=== PATIENT | male | born 1990 | race Caucasian/White ===

== ENCOUNTER 2019-09-28 01:52 | Emergency (ER) | payer MEDICAID ==
[~2019-09-28] VITALS: Ht 175.3 cm; Wt 72.6 kg
[2019-09-28 02:55] VITALS: BP_SYST 119
[2019-09-28] MEDS ORDERED: ACETAMINOPHEN 500 MG TABLET PO ONE (03:15)
--- NOTE | 2019-09-28 04:06 | NUR ---
Per administration clerk, pt LWBS.
== END 2019-09-28 04:06 | disposition left against medical advice (07) ==
LOC: SED 01:52
DX: R50.9 Fever, unspecified (principal); R30.9 Painful micturition, unspecified; M54.5 Low back pain; Z53.21 Procedure and treatment not carried out due to patient leaving prior to being seen by health care provider
CPT/HCPCS: 36415; 86710; 99281; J7030

== ENCOUNTER 2019-09-28 10:49 | Emergency (ER) | payer MEDICAID ==
[~2019-09-28] VITALS: Ht 175.3 cm; Wt 72.6 kg
--- NOTE | 2019-09-28 10:55 | NUR ---
PATIENT TO ER #3
[2019-09-28 11:05] VITALS: BP_SYST 132
--- NOTE | 2019-09-28 11:12 | NUR ---
PATIENT PRESENTS TO THE ER WITH HX OF FEVER AND BODY ACHES WITH COUGH FOR TWO DAYS; NO TRAUMA, NO OTHER REMARKABLE S/S
[2019-09-28] MEDS ORDERED: NACL 0.9% 1,000 ML IV ONE (11:30)
[2019-09-28] MEDS ORDERED: KETOROLAC TROMETHAMINE 30 MG VIAL IVP ONE (11:30)
--- NOTE | 2019-09-28 12:09 | NUR ---
IV PLACED LAC #22 WITHOUT INCIDENT
--- NOTE | 2019-09-28 12:33 | NUR ---
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
--- NOTE | 2019-09-28 12:53 | NUR ---
IV FLUIDS INFUSED; PATIENT STATES ONLY MARGINAL IMPROVEMENT IN BODY ACHES (BACK PAIN TOO); IV OUT AND DRESSED PER ERMD; DISPOSITION PENDING
[2019-09-28 13:21] VITALS: BP_SYST 124
--- NOTE | 2019-09-28 13:23 | NUR ---
REASSESSMENT BY ERMD; ACI GIVEN PER ERMD; IV OUT AND DRESSED; PATIENT DISCHARGED WITH FAMILY, AMBULATORY; IMPROVED
== END 2019-09-28 13:21 | disposition home or self-care (01) ==
LOC: SED 10:49
DX: B34.9 Viral infection, unspecified (principal)
CPT/HCPCS: 96374; 99283; J1885; J7030

== ENCOUNTER 2020-09-22 18:17 | Emergency (ER) | payer MEDICAID ==
[~2020-09-22] VITALS: Ht 175.3 cm; Wt 86.2 kg
--- NOTE | 2020-09-22 18:22 | NUR ---
Patient to ER bed 04 to gown for evaluation. Side rails up.
[2020-09-22 18:27] VITALS: BP_SYST 118
[2020-09-22] MEDS ORDERED: LIDOCAINE 1%, 20 ML MDV 20 ML ONE (18:35)
--- NOTE | 2020-09-22 18:35 | NUR ---
Pt came to ER for rectal pain, cyst on sacral area, rates pain 5/10. Pt resting in [facility], [facility], no distress noted.
--- NOTE | 2020-09-22 18:40 | NUR ---
ER at bedside examining patient.
[2020-09-22] MEDS ORDERED: IBUP-1971 PO (18:47)
[2020-09-22] MEDS ORDERED: CLIN300C11 PO (18:47)
[2020-09-22] MEDS: DIPH-TET-PERTUS Vaccine 0.5 ML VIAL (ADACEL) I.M. ONE (18:55)
[2020-09-22] MEDS: LIDOCAINE/EPI 1% 1:100000 20 ML VIAL INJ ONE (18:56)
[2020-09-22] MEDS: LIDOCAINE 1% 10 MG/ML, 20 ML MDV INJ ONE (18:56)
[2020-09-22] MEDS: BACITRACIN 1 GM OINT TP ONE (18:56)
[2020-09-22 19:08] VITALS: BP_SYST 135
--- NOTE | 2020-09-22 19:09 | NUR ---
Patient given written and verbal discharge instructions and verbalizes understanding. ER MD discussed with patient the results and treatment provided. Patient in stable condition. ID arm band removed. Rx of Clindamycin and Ibuprofen given. Patient educated on pain management and to follow up with PMD. Pain Scale 0/10. Opportunity for questions provided and answered. Medication side effect fact sheet provided.
== END 2020-09-22 19:08 | disposition home or self-care (01) ==
LOC: SED 18:17
DX: L05.91 Pilonidal cyst without abscess (principal); Z79.899 Other long term (current) drug therapy
CPT/HCPCS: 10081; 90471; 90715; 99284; J2001

== ENCOUNTER 2020-09-24 17:26 | Emergency (ER) | payer MEDICAID ==
[~2020-09-24] VITALS: Ht 175.3 cm; Wt 86.2 kg
[~2020-09-24 17:26] MED LIST: CLIN300C11 PO; IBUP-1971 PO
[2020-09-24 17:29] VITALS: BP_SYST 116
[2020-09-24 18:15] VITALS: BP_SYST 116
== END 2020-09-24 18:15 | disposition home or self-care (01) ==
LOC: SED 17:26
DX: Z48.00 Encounter for change or removal of nonsurgical wound dressing (principal)
CPT/HCPCS: 99282